=== PATIENT | male | born 1960 | race Two or more races ===

== ENCOUNTER → 2016-09-21 | Outpatient (CLI) | payer OTHER ==
--- NOTE | 2016-09-21 16:58 | DX ---
Cervical Spine ( 5 Views) Clinical Indications: Neck pain. Findings: Alignment is normal, and there are no fractures. The intervertebral disks have normal hei ght, and the cervical curvature is normal. There are no significant osteophytes. The bony spinal ca nal and neural foramina are developmentally adequate in size. Impression: Normal.
--- NOTE | 2016-09-21 17:10 | DX ---
Lumbar Spine, Four Views History: Back pain. Findings: Minimal loss of height of interspace at L3-L4 is accompanied by small osteophytes and trace subluxation. Mild facet arthropathy at L4-L5 on the left. Sacroiliac joints are normal. 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 Mild facet arthropathy at L4-L5.
--- NOTE | 2016-09-21 17:10 | DX ---
Sacrum and Coccyx, 3 Views Clinical Indications: Coccydynia. Findings: A fracture is not identified. The bones have normal alignment. Soft tissues are unremark able. Impression: Negative sacrum and coccyx.
--- NOTE | 2016-09-21 17:18 | DX ---
Thoracic Spine, Four Views History: Back pain. Findings: Mild vacuum phenomenon within intervertebral disk at T11-T12. Scattered osteophytes are sma ll. No compression fracture. No paraspinous mass. Impression: Minimal osteophytosis.
== END ==
LOC: BRMIMAGING 15:03
DX: M25.78 Osteophyte, vertebrae (principal); M51.36 Other intervertebral disc degeneration, lumbar region; M53.3 Sacrococcygeal disorders, not elsewhere classified
CPT/HCPCS: 72050-PO; 72072-PO; 72100-PO; 72220-PO

== ENCOUNTER → 2016-11-21 | Outpatient (CLI) | payer OTHER | LOC: BRMIMAGING 11:19 | PROVIDERS: ATTEND Internal Medicine | DX: M79.89 Other specified soft tissue disorders (principal) | CPT/HCPCS: 73080-PO ==